=== PATIENT | male | born 1980 | race Caucasian/White ===

== ENCOUNTER 2018-07-14 10:19 | Emergency (ER) | payer OTHER, BC ==
[2018-07-14] MEDS ORDERED: HYDROmorphone 2 MG/ML SDV IVPUSH ONE (10:20)
--- NOTE | 2018-07-14 10:20 | EDM.PDOC ---
ED HPI GENERAL MEDICAL PROBLEM - General Stated Complaint: HURT ELBOW Time Seen by Provider: 07/14/18 10:20 Source of Information: Reports: Patient - History of Present Illness INITIAL COMMENTS - FREE TEXT/NARRATIVE: HISTORY AND PHYSICAL: History of present illness: []Patient presents with a right upper extremity amputation, EMS has achieved hemostasis of the right upper extremity outline his arm became entangled in a PTO shaft on his semitruck EMSs placed a tourniquet and bandaged wound, and also provide the remainder of the extremity On-site they provided 100 g of fentanyl, tourniquet placement Review of systems: As per history of present illness and below otherwise all systems reviewed and negative. Past medical history: As per history of present illness and as reviewed below otherwise noncontributory. Surgical history: As per history of present illness and as reviewed below otherwise noncontributory. Social history: No reported history of drug or alcohol abuse. Family history: As per history of present illness and as reviewed below otherwise noncontributory. Physical exam: HEENT: Atraumatic, normocephalic, pupils reactive, negative for conjunctival pallor or scleral icterus, mucous membranes moist, throat clear, neck supple, nontender, trachea midline. Lungs: Clear to auscultation, breath sounds equal bilaterally, chest nontender. Heart: S1S2, regular, negative for clicks, rubs, or JVD. Abdomen: Soft, nondistended, nontender. Negative for masses or hepatosplenomegaly. Negative for costovertebral tenderness. Pelvis: Stable nontender. Genitourinary: Deferred. Rectal: Deferred. Extremities: Atraumatic, negative for cords or calf pain. Neurovascular unremarkable. Neuro: Awake, alert, oriented. Cranial nerves II through XII unremarkable. Cerebellum unremarkable. Motor and sensory unremarkable throughout. Exam nonfocal. Diagnostics: []CBC CMP UA troponin ordered R Type and screen Therapeutics: [] fentanyl 100 g provided via EMS Dilaudid 4 mg IV Tetanus status is updated Ancef 1 g IV Impression: [] upper extremity amputation -mid shaft forearm Definitive disposition and diagnosis as appropriate pending reevaluation and review of above. - Related Data Allergies Allergy/AdvReac Type Severity Reaction Status Date / Time No Known Allergies Allergy Verified 06/13/15 09:33 Home Meds: Home Meds Multivitamin [Multivitamins] 1 tab PO DAILY 06/13/15 [History] Past Medical History Musculoskeletal History: Reports: Gout - Past Surgical History GI Surgical History: Reports: Other (See Below) Musculoskeletal Surgical History: Reports: Other (See Below) Social & Family History - Family History Cardiac: Reports: ME Respiratory: Reports: COPD Neurological: Reports: CVA, Seizure Endocrine/Metabolic: Reports: Diabetes, Type I ED ROS GENERAL - Review of Systems Review Of Systems: See Below ED EXAM, GENERAL - Physical Exam Exam: See Below Course - Orders/Labs/Meds Orders: Active Orders 24 hr Category Date Time Status Chest 1V Frontal [CR] Stat Exams 07/14/18 10:21 Ordered Meds: Medications Discontinued Medications Generic Name Dose Route Start Last Admin Trade Name Freq PRN Reason Stop Dose Admin Hydromorphone HCl 4 mg 07/14/18 10:20 Dilaudid IVPUSH 07/14/18 10:21 ONETIME ONE Departure - Departure Time of Disposition: 10:30 Disposition: DC/Tfer to Acute Hospital 02 Condition: Poor Clinical Impression: Amp below elb, unil-comp - Discharge Information - My Orders Last 24 Hours: My Active Orders 07/14/18 10:21 Chest 1V Frontal [CR] Stat - Assessment/Plan Last 24 Hours: My Active Orders 07/14/18 10:21 Chest 1V Frontal [CR] Stat
[2018-07-14] MEDS ORDERED: HYDROmorphone 2 MG/ML Syringe ONE (10:22)
[2018-07-14] MEDS ORDERED: Diphtheria,Pertussis(Acell),Tetanus Vaccine 0.5 ML Syringe IM ONE (10:23)
[2018-07-14] MEDS ORDERED: ceFAZolin 1 GM in Premix Bag 1 BAG IV ONE (10:23)
--- NOTE | 2018-07-14 10:42 | CR ---
EXAMINATION: Portable chest radiograph. HISTORY: Shortness of breath. FINDINGS: The trachea is midline. The cardiomediastinal silhouette is within normal limits. The right sulcus appears deep and a small pneumothorax is not excluded. No focal consolidation or pleural effusion. Probable right lateral sixth rib fracture. IMPRESSION: 1. Probable right lateral sixth rib fracture. 2. A small pneumothorax on the right cannot excluded.
[2018-07-14 10:58] LABS: CHLORIDE,CL 113 mmol/L (98-107); SODIUM,NA 148 mmol/L (136-148)
[2018-07-14] MEDS ORDERED: Sodium Chloride 0.9% 1,000 ML IV ONE (14:19)
[2018-07-14 14:36] VITALS: BP 144/87
== END 2018-07-14 10:56 ==
LOC: MW.ED 10:19
DX: S58.111A Complete traumatic amputation at level between elbow and wrist, right arm, initial encounter (principal); S01.01XA Laceration without foreign body of scalp, initial encounter; S20.311A Abrasion of right front wall of thorax, initial encounter; Z23 Encounter for immunization; Z79.899 Other long term (current) drug therapy; W22.8XXA Striking against or struck by other objects, initial encounter
CPT/HCPCS: 36415; 51702; 71045; 80053; 81001; 85025; 85610; 86850; 86900; 86901; 90471; 90715; 96365; 96375; 99291; G0390; J0690; J1170; J7040

== ENCOUNTER 2019-08-09 17:43 | Emergency (ER) | payer BC, OTHER ==
[2019-08-09] MEDS ORDERED: Famotidine 20 MG/2 ML SDV ONE (17:49)
[2019-08-09] MEDS ORDERED: methylPREDNISolone Sodium Succinate 125 MG/2 ML SDV ONE (17:49)
[2019-08-09] MEDS ORDERED: EPINEPHrine 1 MG/ML SDV IM ONE ×2 (17:55→17:56)
[2019-08-09] MEDS ORDERED: methylPREDNISolone Sodium Succinate 125 MG/2 ML SDV IVPUSH ONE (17:56)
[2019-08-09] MEDS ORDERED: Albuterol 0.083% 2.5 MG/3 ML Neb Soln ONE ×2 (17:56→18:08)
[2019-08-09] MEDS ORDERED: Dexamethasone 10 MG/ML SDV ONE (17:59)
[2019-08-09] MEDS ORDERED: Dexamethasone 10 MG/ML SDV IVPUSH ONE (17:59)
[2019-08-09] MEDS ORDERED: Magnesium Sulfate (4.06 MEQ/ML) 5 GM/10 ML SDV ONE (18:00)
[2019-08-09] MEDS ORDERED: Ondansetron 4 MG/2 ML SDV ONE (18:04)
[2019-08-09] MEDS ORDERED: Ondansetron 4 MG/2 ML SDV IVPUSH ONE (18:09)
[2019-08-09] MEDS ORDERED: Albuterol 0.083% 2.5 MG/3 ML Neb Soln NEB ONE ×2 (18:10)
[2019-08-09] MEDS ORDERED: Famotidine 20 MG/2 ML SDV IVPUSH ONE (18:13)
--- NOTE | 2019-08-09 19:13 | EDM.PDOC ---
<Felix Michaels E - Last Filed: 08/09/19 19:36> ED HPI GENERAL MEDICAL PROBLEM - General Chief Complaint: Allergic Reaction Stated Complaint: ALLERGIC REACTION Time Seen by Provider: 08/09/19 18:01 Source of Information: Reports: Patient History Limitations: Reports: No Limitations - History of Present Illness INITIAL COMMENTS - FREE TEXT/NARRATIVE: 38-year-old gentleman, no medical problems, presenting to ED for allergic reaction, stated that he was eating an eggroll, shortly afterward developed pruritus lip swelling tongue swelling itchiness nausea and wheezing. This has never happened to him before. he is allergic to cats which he was around today, but also had the meal prepared by his (beef, soy sauce, fabiola powder, garlic powder). only new ingredient was the fabiola. Took benadryll x 2 prior to arrival. - Related Data Allergies Allergy/AdvReac Type Severity Reaction Status Date / Time No Known Allergies Allergy Verified 07/14/18 14:29 Home Meds: Home Meds EPINEPHrine [Epipen 2-Johnny] 0.3 mg IJ ONETIME #0.3 ml 08/09/19 [Rx] Past Medical History Musculoskeletal History: Reports: Gout Other Neuro History: phantom pains - Past Surgical History GI Surgical History: Reports: Other (See Below) Musculoskeletal Surgical History: Reports: Other (See Below) Other Musculoskeletal Surgeries/Procedures:: amputation of right lower arm due to accident Social & Family History - Family History Family Medical History: Noncontributory Cardiac: Reports: ID Respiratory: Reports: COPD Neurological: Reports: CVA, Seizure Endocrine/Metabolic: Reports: Diabetes, Type I - Tobacco Use Smoking Status *Q: Never Smoker - Recreational Drug Use Recreational Drug Use: No ED ROS ALLERGIC REACTION - Review of Systems Constitutional: Reports: No Symptoms HEENT: Reports: Throat Swelling Respiratory: Reports: Shortness of Breath, Wheezing Cardiovascular: Reports: No Symptoms Endocrine: Reports: Polyuria GI/Abdominal: Reports: Nausea : Reports: No Symptoms Musculoskeletal: Reports: No Symptoms Skin: Reports: Pruritis Neurological: Reports: No Symptoms Psychiatric: Reports: No Symptoms Hematologic/Lymphatic: Reports: No Symptoms Immunologic: Reports: No Symptoms ED EXAM GENERAL NO PERIP PULSE - Physical Exam Exam: See Below Exam Limited By: No Limitations General Appearance: Alert, Mild Distress Throat/Mouth: Other (patient had lip swelling ) Course - Vital Signs Last Recorded V/S: Last Vital Signs Temp 36.6 C 08/09/19 17:50 Pulse 70 08/09/19 19:35 Resp 16 08/09/19 19:35 BP 162/78 H 08/09/19 19:35 Pulse Ox 98 08/09/19 19:35 - Orders/Labs/Meds Orders: Active Orders 24 hr Category Date Time Status RT Aerosol Therapy [RC] ASDIRECTED Care 08/09/19 18:10 Active RT Aerosol Therapy [RC] ASDIRECTED Care 08/09/19 18:10 Active Meds: Medications Discontinued Medications Generic Name Dose Route Start Last Admin Trade Name Freq PRN Reason Stop Dose Admin Albuterol Confirm 08/09/19 17:56 08/09/19 18:09 Proventil Neb Soln Administered 08/09/19 17:57 Not Given Dose 2.5 mg .ROUTE .STK-MED ONE Albuterol Confirm 08/09/19 18:08 08/09/19 18:12 Proventil Neb Soln Administered 08/09/19 18:09 Not Given Dose 2.5 mg .ROUTE .STK-MED ONE Albuterol 2.5 mg 08/09/19 18:10 08/09/19 17:56 Proventil Neb Soln NEB 08/09/19 18:11 2.5 mg ONETIME ONE Administration Albuterol 2.5 mg 08/09/19 18:10 08/09/19 18:12 Proventil Neb Soln NEB 08/09/19 18:11 2.5 mg ONETIME ONE Administration Dexamethasone 16 mg 08/09/19 17:59 08/09/19 18:08 Dexamethasone IVPUSH 08/09/19 18:00 16 mg ONETIME ONE Administration Dexamethasone Confirm 08/09/19 17:59 08/09/19 18:09 Dexamethasone Administered 08/09/19 18:00 Not Given Dose 20 mg .ROUTE .STK-MED ONE Epinephrine HCl 0.5 mg 08/09/19 17:55 08/09/19 18:02 Adrenalin IM 08/09/19 17:56 0.5 mg ONETIME ONE Administration Epinephrine HCl 0.5 mg 08/09/19 17:56 08/09/19 18:06 Adrenalin IM 08/09/19 17:57 0.5 mg ONETIME ONE Administration Famotidine Confirm 08/09/19 17:49 08/09/19 18:09 Pepcid Administered 08/09/19 17:50 Not Given Dose 20 mg .ROUTE .STK-MED ONE Famotidine 20 mg 08/09/19 18:13 08/09/19 18:14 Pepcid IVPUSH 08/09/19 18:14 20 mg ONETIME ONE Administration Methylprednisolone Sodium Succinate Confirm 08/09/19 17:49 08/09/19 18:07 Solu-Medrol Administered 08/09/19 17:50 Not Given Dose 125 mg .ROUTE .STK-MED ONE Methylprednisolone Sodium Succinate 125 mg 08/09/19 17:56 08/09/19 18:07 Solu-Medrol IVPUSH 08/09/19 17:57 125 mg ONETIME ONE Administration Ondansetron HCl Confirm 08/09/19 18:04 08/09/19 18:09 Zofran Administered 08/09/19 18:05 Not Given Dose 8 mg .ROUTE .STK-MED ONE Ondansetron HCl 4 mg 08/09/19 18:09 08/09/19 18:11 Zofran IVPUSH 08/09/19 18:10 4 mg ONETIME ONE Administration - Re-Assessments/Exams Free Text/Narrative Re-Assessment/Exam: 08/09/19 19:36 Upon arrival patient was treated for anaphylactic reaction with angioedema, he was given epi x 2, solumedrol, decadron, famotidine, and albuterol. I monitored the patient until there was marked improvement in his symptoms. Swelling improved with the above treatment. Patient will be monitored for a couple of hours and re-assessed. I educated him on the suspected allergens and instructed them to avoid them. There was never any hd instability. The angioedema markedly improved. Departure - Departure Disposition: Home, Self-Care 01 Clinical Impression: Anaphylactic reaction - Discharge Information Prescriptions: EPINEPHrine [Epipen 2-Johnny] 0.3 mg IJ ONETIME #0.3 ml Referrals: Jasmin Weinberg DO [Primary Care Provider] - Additional Instructions: The following information is given to patients seen in the emergency department who are being discharged to home. This information is to outline your options for follow-up care. We provide all patients seen in our emergency department with a follow-up referral. The need for follow-up, as well as the timing and circumstances, are variable depending upon the specifics of your emergency department visit. If you don't have a primary care physician on staff, we will provide you with a referral. We always advise you to contact your personal physician following an emergency department visit to inform them of the circumstance of the visit and for follow-up with them and/or the need for any referrals to a consulting specialist. The emergency department will also refer you to a specialist when appropriate. This referral assures that you have the opportunity for follow-up care with a specialist. All of these measure are taken in an effort to provide you with optimal care, which includes your follow-up. Under all circumstances we always encourage you to contact your private physician who remains a resource for coordinating your care. When calling for follow-up care, please make the office aware that this follow-up is from your recent emergency room visit. If for any reason you are refused follow-up, please contact the [facility] Emergency Department at and asked to speak to the emergency department charge nurse. Critical Care Note - Critical Care Note Total Time (mins): 40 Comments: management of anaphylaxis/angioedema Sepsis Event Note - Evaluation Sepsis Screening Result: No Definite Risk - Focused Exam Vital Signs: Vital Signs Temp Pulse Resp BP Pulse Ox 08/09/19 19:35 70 16 162/78 H 98 08/09/19 19:10 94 18 182/77 H 98 08/09/19 18:25 79 18 197/88 H 97 08/09/19 18:10 76 20 153/97 H 96 08/09/19 17:50 36.6 C 97 28 H 163/86 H 95 Date Exam was Performed: 08/09/19 Time Exam was Performed: 19:36 <Azeem Meyer - Last Filed: 08/09/19 21:15> ED ROS ALLERGIC REACTION - Review of Systems Review Of Systems: See Below ED EXAM GENERAL NO PERIP PULSE - Physical Exam Exam: See Below Departure - Departure Time of Disposition: 21:13 Sepsis Event Note - Focused Exam Date Exam was Performed: 08/09/19 Time Exam was Performed: 21:13 - Assessment/Plan Assessment:: Assumed care for this patient at signout. Patient was reevaluated several times without any distress. Patient has no symptoms at the time of discharge. Patient was observed for a period of 3-1/2 hours with major improvement and condition. Patient given strict return precautions all questions were addressed and answered. Patient agrees with plan.
[2019-08-09 21:53] VITALS: BP 152/82; PULSE 75
== END 2019-08-09 21:54 | disposition home or self-care (01) ==
LOC: MW.ED 17:43
DX: T78.00XA Anaphylactic reaction due to unspecified food, initial encounter (principal); Z91.09 Other allergy status, other than to drugs and biological substances
CPT/HCPCS: 96372; 96374; 96375; 99284; J0171; J1100; J2405; J2930; J3475; S0028; J3490

== ENCOUNTER 2019-09-04 19:57 | Emergency (ER) | payer BC ==
[2019-09-04] MEDS ORDERED: Dexamethasone 10 MG/ML SDV ONE (20:01)
[2019-09-04] MEDS ORDERED: Famotidine 20 MG Tab ONE (20:01)
[2019-09-04] MEDS ORDERED: Famotidine 20 MG/2 ML SDV ONE (20:02)
[2019-09-04] MEDS ORDERED: EPINEPHrine 1 MG/ML SDV ONE (20:03)
[2019-09-04] MEDS ORDERED: methylPREDNISolone Sodium Succinate 125 MG/2 ML SDV ONE (20:04)
[2019-09-04] MEDS ORDERED: Albuterol/Ipratropium 3.0-0.5 MG/3 ML Neb Soln ONE (20:09)
[2019-09-04] MEDS ORDERED: EPINEPHrine 1 MG/ML SDV IM ONE (20:14)
[2019-09-04] MEDS ORDERED: Dexamethasone 10 MG/ML SDV IVPUSH ONE (20:14)
[2019-09-04] MEDS ORDERED: Albuterol/Ipratropium 3.0-0.5 MG/3 ML Neb Soln NEB ONE (20:14)
[2019-09-04] MEDS ORDERED: Famotidine 20 MG/2 ML SDV IVPUSH ONE (20:14)
[2019-09-04] MEDS ORDERED: methylPREDNISolone Sodium Succinate 125 MG/2 ML SDV IVPUSH SCH (20:15)
[2019-09-04] MEDS ORDERED: Albuterol 0.083% 2.5 MG/3 ML Neb Soln NEB ONE (20:16)
--- NOTE | 2019-09-04 20:31 | EDM.PDOC ---
ED HPI GENERAL MEDICAL PROBLEM - General Chief Complaint: Allergic Reaction Stated Complaint: allergic reaction Time Seen by Provider: 09/04/19 20:00 - History of Present Illness INITIAL COMMENTS - FREE TEXT/NARRATIVE: 38-year-old male history of traumatic amputation of the right upper extremity, anaphylactic reaction month prior which I took cake care of. The patient states he was eating an " pot stick". 5 min after he started getting itchy, with a rash so he gave himself an epi pen and took 50 mg of benadryll and came to ED. denied dyspnea. states her lips felt tingly. deneid any tongue swelling. denied cough, denied vomiting. at some point felt mild nausea. was unable to make appointment with scrap shear operator. - Related Data Allergies Allergy/AdvReac Type Severity Reaction Status Date / Time sesame seed Allergy Anaphylactic Verified 09/04/19 20:01 Shock Home Meds: Home Meds EPINEPHrine [Epipen 2-Johnny] 0.3 mg IJ ONETIME #0.3 ml 08/09/19 [Rx] EPINEPHrine [Epipen 2-Johnny] 0.3 mg IJ ONETIME PRN #2 ml 09/05/19 [Rx] Famotidine 20 mg PO BID #10 tablet 09/05/19 [Rx] diphenhydrAMINE [Benadryl] 25 mg PO Q6HR PRN #30 tablet 09/05/19 [Rx] predniSONE 40 mg PO WITHBREAKFAST 4 Days #8 tab 09/05/19 [Rx] Past Medical History HEENT History: Reports: Impaired Vision Musculoskeletal History: Reports: Gout Other Neuro History: phantom pains - Infectious Disease History Infectious Disease History: Reports: Chicken Pox - Past Surgical History GI Surgical History: Reports: Other (See Below) Musculoskeletal Surgical History: Reports: Other (See Below) Other Musculoskeletal Surgeries/Procedures:: amputation of right lower arm due to accident Social & Family History - Family History Family Medical History: Noncontributory Cardiac: Reports: ME Respiratory: Reports: COPD Neurological: Reports: CVA, Seizure Endocrine/Metabolic: Reports: Diabetes, Type I - Tobacco Use Smoking Status *Q: Never Smoker - Caffeine Use Caffeine Use: Reports: Energy Drinks, Soda, Tea - Recreational Drug Use Recreational Drug Use: No ED ROS ALLERGIC REACTION - Review of Systems Review Of Systems: Comprehensive ROS is negative, except as noted in HPI. ED EXAM GENERAL NO PERIP PULSE - Physical Exam Exam: See Below Exam Limited By: No Limitations General Appearance: Alert, No Apparent Distress Eye Exam: Bilateral Eye: EOMI Ears: Normal External Exam Nose: Normal Inspection Throat/Mouth: Normal Voice, No Airway Compromise, Other (no lip swelling, noted , normal tongue, uvula normal, speaking full sentences, managing secretions well. ) Neck: Supple Respiratory/Chest: Lungs Clear, Normal Breath Sounds, No Accessory Muscle Use Cardiovascular: Regular Rate, Rhythm, No Gallop, No JVD, No Murmur, No Rub Skin Exam: Other (scrathcing, diffuse hives, redness ) Course - Vital Signs Last Recorded V/S: Last Vital Signs Temp 97.3 F 09/05/19 00:30 Pulse 81 09/05/19 00:30 Resp 18 09/05/19 00:30 BP 130/87 09/05/19 00:30 Pulse Ox 98 09/05/19 00:30 - Orders/Labs/Meds Meds: Medications Discontinued Medications Generic Name Dose Route Start Last Admin Trade Name Marsha PRN Reason Stop Dose Admin Albuterol 2.5 mg 09/04/19 20:16 09/04/19 20:51 Proventil Neb Soln NEB 09/04/19 20:17 2.5 mg ONETIME ONE Administration Albuterol/Ipratropium Confirm 09/04/19 20:09 09/04/19 20:17 Duoneb 3.0-0.5 Mg/3 Ml Administered 09/04/19 20:10 Not Given Dose 3 ml .ROUTE .STK-MED ONE Albuterol/Ipratropium 3 ml 09/04/19 20:14 09/04/19 20:15 Duoneb 3.0-0.5 Mg/3 Ml NEB 09/04/19 20:15 3 ml ONETIME ONE Administration Dexamethasone Confirm 09/04/19 20:01 09/04/19 20:17 Dexamethasone Administered 09/04/19 20:02 Not Given Dose 20 mg .ROUTE .STK-MED ONE Dexamethasone 14 mg 09/04/19 20:14 09/04/19 20:03 Dexamethasone IVPUSH 09/04/19 20:15 14 mg ONETIME ONE Administration Epinephrine HCl Confirm 09/04/19 20:03 09/04/19 20:17 Adrenalin Administered 09/04/19 20:04 Not Given Dose 1 mg .ROUTE .STK-MED ONE Epinephrine HCl 0.5 mg 09/04/19 20:14 09/04/19 20:02 Adrenalin IM 09/04/19 20:15 0.5 mg ONETIME ONE Administration Famotidine Confirm 09/04/19 20:01 09/04/19 20:18 Pepcid Administered 09/04/19 20:02 Not Given Dose 20 mg .ROUTE .STK-MED ONE Famotidine Confirm 09/04/19 20:02 09/04/19 20:08 Pepcid Administered 09/04/19 20:03 Not Given Dose 20 mg .ROUTE .STK-MED ONE Famotidine 20 mg 09/04/19 20:14 09/04/19 20:04 Pepcid IVPUSH 09/04/19 20:15 20 mg ONETIME ONE Administration Methylprednisolone Sodium Succinate Confirm 09/04/19 20:04 09/04/19 20:18 Solu-Medrol Administered 09/04/19 20:05 Not Given Dose 125 mg .ROUTE .STK-MED ONE Methylprednisolone Sodium Succinate 125 mg 09/04/19 20:15 09/04/19 20:02 Solu-Medrol IVPUSH 125 mg DAILY MARIA DOLORES Administration - Re-Assessments/Exams Free Text/Narrative Re-Assessment/Exam: 09/04/19 21:35 treated for anaphylactic reaction. given epi here, solumedrol, decadron, albuterol, famotidine. i have re-assessed him multiple times, breathing normally , feeling improved no mouth swelling noted. also had a long discussion regarding alergen avoidance. 09/06/19 14:54 Departure - Departure Time of Disposition: 00:30 Disposition: Home, Self-Care 01 Clinical Impression: Anaphylaxis - Discharge Information Prescriptions: diphenhydrAMINE [Benadryl] 25 mg PO Q6HR PRN #30 tablet PRN Reason: Itching EPINEPHrine [Epipen 2-Johnny] 0.3 mg IJ ONETIME PRN #2 ml PRN Reason: Allergies Famotidine 20 mg PO BID #10 tablet predniSONE 40 mg PO WITHBREAKFAST 4 Days #8 tab Instructions: Anaphylactic Reaction, Adult, Food Allergy, [id number] Referrals: Jasmin Weinberg DO [Primary Care Provider] - Additional Instructions: return to eD if you develop signs of allergic reaction, avoid any type of nuts, peanuts, soy products, sesame products or any that was in the meal that you had prior to the allergic reaction. follow up with scrap shear operator. The following information is given to patients seen in the emergency department who are being discharged to home. This information is to outline your options for follow-up care. We provide all patients seen in our emergency department with a follow-up referral. The need for follow-up, as well as the timing and circumstances, are variable depending upon the specifics of your emergency department visit. If you don't have a primary care physician on staff, we will provide you with a referral. We always advise you to contact your personal physician following an emergency department visit to inform them of the circumstance of the visit and for follow-up with them and/or the need for any referrals to a consulting specialist. The emergency department will also refer you to a specialist when appropriate. This referral assures that you have the opportunity for follow-up care with a specialist. All of these measure are taken in an effort to provide you with optimal care, which includes your follow-up. Under all circumstances we always encourage you to contact your private physician who remains a resource for coordinating your care. When calling for follow-up care, please make the office aware that this follow-up is from your recent emergency room visit. If for any reason you are refused follow-up, please contact the [facility] Emergency Department at and asked to speak to the emergency department charge nurse. Sepsis Event Note - Evaluation Sepsis Screening Result: No Definite Risk - Focused Exam Date Exam was Performed: 09/06/19 Time Exam was Performed: 14:54
[2019-09-05 00:41] VITALS: BP 130/87; PULSE 81
== END 2019-09-05 00:35 | disposition home or self-care (01) ==
LOC: MW.ED 19:57
DX: T78.2XXA Anaphylactic shock, unspecified, initial encounter (principal); M10.9 Gout, unspecified; Z89.201 Acquired absence of right upper limb, unspecified level; Z91.018 Allergy to other foods; Z79.899 Other long term (current) drug therapy
CPT/HCPCS: 96372; 96374; 96375; 99283; J0171; J1100; J2930; S0028; 99282; J3490; J7620-GY